=== PATIENT | female | born 1935 | race Caucasian/White ===

== ENCOUNTER 2017-01-01 09:40 | Emergency (ER) | payer OTHER, MEDICARE ==
[~2017-01-01] VITALS: Ht 165.1 cm; Wt 51.7 kg
--- NOTE | 2017-01-01 09:53 | ED SYNCOPE COMPLAINT ---
History of Present Illness General Chief Complaint: Syncope and Near-Syncope Stated Complaint: SYNCOPE Source: patient, old records, EMS, friend Exam Limitations: no limitations Vital Signs & Intake/Output Vital Signs & Intake/Output Vital Signs Date Time Temp Pulse Resp B/P B/P Pulse O2 O2 Flow FiO2 Mean Ox Delivery Rate 01/01 1357 73 16 140/62 97 Room Air 01/01 1202 96.3 72 18 160/68 100 01/01 1009 95 Room Air Room Air 01/01 0942 96.5 56 15 154/64 98 Room Air Room Air Allergies Coded Allergies: NO KNOWN ALLERGIES (07/15/12) Reconcile Medications Lorazepam (Ativan) 0.5 MG TABLET 1 TAB PO BIDP PRN ANXIETY Triage Note: PT TO ED S/P ?SYNCOPAL EPISODE AT [facility] THIS MORNING. PER EMS, PT WENT BLANK ACCORDING TO BY-STANDER WHILE AT [facility]. PT HAD RECENT EPISODE ON MONDAY AND ADMITTED TO [facility] FOR HYPONATREMIA. PT ARRIVES ALERT AND ORIENTED X 4, NO ACUTE DISTRESS, DENIES CP, DENIES SOB, NO ACUTE DISTRESS, NO DIAPHORESIS NOTED. PT ALSO REPORTS SHE WAS RECENTLY STARTED ON ZOLOFT ON MONDAY AND IS UNSURE IF IT IS RELATED. Triage Nurses Notes Reviewed? yes HPI: Patient was at [facility] today when she stood up and suddenly felt lightheaded and very hot feeling. Patient then became very rigid. Patient was helped to sit down. Patient was out of it during the episode. There is no seizure-like activity. Patient had a syncopal episode on and went to [place] where she was found to be hyponatremic to 114. She was admitted overnight. Patient had started Zoloft on Monday for anxiety. She was told to stop the Zoloft. 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 Patient also had a syncopal episode back in October and was told that it was vasovagal. Patient is currently asymptomatic. Patient is states that she feels very anxious but she has a history of anxiety and it is not worse than normal. Patient denies any chest pain or palpitations. There is no shortness of breath. There is no nausea or vomiting. Past History Travel History Traveled to [place] past 21 day No Medical History Any Pertinent Medical History? see below for history Cardiovascular: hypertension, HYPONATREMIA HYPERCHOLESTEROLEMIA Psychiatric: anxiety Endocrine: PRE DIABETIC HYPOTHYROID Blood Disorders: NONE Cancer(s): NONE AIRLINE CUSTOMER SERVICE AGENT/Reproductive: NONE Surgical History Surgical History: non-contributory Psychosocial History What is your primary language Yoruba Tobacco Use: Never used ETOH Use: denies use Illicit Drug Use: denies illicit drug use Family History Hx Contributory? No Review of Systems Review of Systems Constitutional: Reports: no symptoms. EENTM: Reports: no symptoms. Respiratory: Reports: no symptoms. Cardiovascular: Reports: no symptoms. GI: Reports: no symptoms. Genitourinary: Reports: no symptoms. Musculoskeletal: Reports: no symptoms. Skin: Reports: no symptoms. Neurological/Psychological: Reports: see HPI, anxiety. All Other Systems: Reviewed and Negative Physical Exam Physical Exam General Appearance: well developed/nourished, awake, anxious, mild distress Head: atraumatic, normal appearance Eyes: Bilateral: PERRL, EOMI. Ears, Nose, Throat: normal pharynx, normal ENT inspection, hearing grossly normal Neck: normal inspection, supple, full range of motion Respiratory: normal breath sounds, chest non-tender, no respiratory distress, lungs clear Cardiovascular: regular rate/rhythm, normal peripheral pulses Gastrointestinal: normal bowel sounds, soft, non-tender, no organomegaly Back: normal inspection, normal range of motion Extremities: normal inspection, normal capillary refill, normal range of motion, no edema Psychiatric: awake, alert, oriented x 3 Cranial Nerves: normal hearing, normal speech, PERRL Coordination/Gait: normal gait Motor/Sensory: no motor/sensory deficits Skin: intact, normal color, warm/dry Core Measures ACS in differential dx? No CVA/TIA Diagnosis: No Severe Sepsis Present: No Septic Shock Present: No Progress Differential Diagnosis: AMI, aortic valve, drug induced syncope, orthostatic syncope, pulmonary embolus, seizure, sick sinus syndrome, vasodepressor syncope, ventricular tach/fib Plan of Care: Orders Procedure Date/time Status Heart Healthy Diet 01/01 D Active TROPONIN LEVEL 01/01 1343 Complete EKG 01/01 1343 Active Add-on Test (ER Only) 01/01 1144 Active CULTURE,URINE 01/01 1105 Active Telemetry/Flight Inspector 01/01 0952 Active URINALYSIS 01/01 0952 Complete THYROID STIMULATING HORMONE 01/01 0952 Complete TROPONIN LEVEL 01/01 0952 Complete COMPREHENSIVE METABOLIC PANEL 01/01 0952 Complete CBC WITHOUT DIFFERENTIAL 01/01 0952 Complete EKG 01/02 952 Active Laboratory Tests 01/01/17 1350: Troponin I < 0.01 01/01/17 1105: Urinalysis LIGHT H, Urine Color YEL, Urine Clarity HAZY H, Urine pH 7.0, Ur Specific [place] 1.010, Urine Protein NEG, Urine Ketones NEG, Urine Nitrite NEG, Urine Bilirubin NEG, Urine Urobilinogen 0.2, Ur Leukocyte Esterase SMALL H, Ur Microscopic SEDIMENT EXAMINED, Urine RBC 1-3, Urine WBC 10-15 H, Ur Epithelial Cells FEW, Urine Bacteria FEW H, Urine Hemoglobin NEG, Urine Glucose NEG 01/01/17 1012: Anion Gap 8, Estimated GFR > 60, BUN/Creatinine Ratio 16.3, Glucose 114 H, Calcium 9.0, Total Bilirubin 0.3, AST 22, ALT 40, Alkaline Phosphatase 92, Troponin I < 0.01, Total Protein 6.6, Albumin 4.1, Globulin 2.5, Albumin/ Globulin Ratio 1.6, TSH 4.360 H, CBC w Diff NO MAN DIFF REQ, RBC 4.15 L, MCV 94.5, MCH 31.7 H, RDW 13.9, MPV 7.8, Gran % 73.2, Lymphocytes % 14.0 L, Monocytes % 10.3 H, Eosinophils % 1.9, Basophils % 0.6, Absolute Granulocytes 3.6, Absolute Lymphocytes 0.7 L, Absolute Monocytes 0.5, Absolute Eosinophils 0.1, Absolute Basophils 0, PUBS MCHC 33.5 Microbiology 01/01 1105 URINE ROUT: Urine Culture - RECD Initial ED EKG: NSR, LVH, nonspecific ST T wave chg Prior EKG: unchanged Repeat EKG: unchanged Rhythm Strip: normal sinus rhythm Comments: Discussed with Dr. Montez. 2 sets of enzymes and a pulse that are negative she may safely be discharged home. Departure Departure Disposition: HOME OR SELF CARE Condition: Stable Clinical Impression Primary Impression: Syncope Referrals: CHASE BECKER,Zaida WATSON (PCP/Family) Additional Instructions: FOLLOW UP WITH YOUR SUPERVISOR [employer]PUTER [employer]PERATIONS RETURN FOR ANY CONCERNS Departure Forms: Customer Survey General Discharge Information Prescriptions: Current Visit Scripts Lorazepam (Ativan) 1 TAB PO BIDP PRN ANXIETY #30 TAB
[2017-01-01 10:28] LABS: ABSOLUTE BASOPHIL COUNT 0 /CUMM (0.0-0.2); ABSOLUTE EOSINOPHIL COUNT 0.1 /CUMM (0.0-0.7); ABSOLUTE GRANULOCYTE CT 3.6 /CUMM (1.4-6.5); ABSOLUTE LYMPH COUNT 0.7 /CUMM (1.2-3.4); ABSOLUTE MONOCYTE COUNT 0.5 /CUMM (0.10-0.60); BASOPHIL % 0.6 % (0.0-2.0); EOSINOPHIL % 1.9 % (0-5); GRANULOCYTE % 73.2 % (42.2-75.2); HEMATOCRIT 39.2 % (37-47); MEAN CORPUSCULAR HGB 31.7 PG (27.0-31.0); MEAN CORPUSCULAR HGB CONC 33.5 G/DL (33.0-37.0); MEAN CORPUSCULAR VOLUME 94.5 FL (81.0-99.0); MEAN PLATELET VOLUME 7.8 FL (7.4-10.4); PLATELET COUNT 192 /CUMM (130-400); RBC DISTRIBUTION WIDTH 13.9 % (11.5-14.5); RED BLOOD CELL CT 4.15 /CUMM (4.20-5.40)
[2017-01-01 13:57] VITALS: BP 140/62
[2017-01-01] MEDS ORDERED: ATIVAN0.5 M1 PO (14:03)
== END 2017-01-01 15:20 ==
LOC: ERH 09:40
PROVIDERS: Emergency Medicine
DX: R55 Syncope and collapse (principal); I10 Essential (primary) hypertension; E78.00 Pure hypercholesterolemia, unspecified
CPT/HCPCS: 81001; 87071; 87086; 93005; 93010